=== PATIENT | female | born 2000 | race Caucasian/White ===

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

== ENCOUNTER → 2020-06-21 | Outpatient (CLI) | payer OTHER ==
[2020-06-21 20:14] LABS: African American GFR (CKD) 153.1 (60.0-200.0); Albumin 4.6 g/dL (3.80-4.90); Albumin/Globulin Ratio 2.09 (1.60-3.17); Anion Gap 7.3 mmol/L (4.00-12.00); Calcium 9.8 mg/dL (8.7-10.3); Carbon Dioxide 27.7 mmol/L (21.6-31.8); Chol/HDL Ratio 2.61; Globulin 2.2 g/dL (1.6-3.3); LDL Cholesterol,Calculated 76.8 mg/dL (0.0-131.0); Potassium 3.9 mmol/L (3.5-5.5); Total Bilirubin 0.4 mg/dL (0.2-1.2); Total Protein 6.8 g/dL (6.2-8.2); VLDL Calculation 10.2 mg/dL (5.00-40.00)
[2020-06-21 20:55] LABS: Hemoglobin A1C 7.5 % (4.0-6.0)
[2020-06-22 00:03] LABS: Urine Creatinine 95.3 mg/dL
[2020-06-22 13:59] LABS: Non-African American GFR(CKD) 132.1 (60.0-200.0)
== END | disposition home or self-care (01) ==
LOC: LABWHC1 12:42
PROVIDERS: ATTEND Internal Medicine Endocrinology, Diabetes & Metabolism
DX: E10.65 Type 1 diabetes mellitus with hyperglycemia (principal)
CPT/HCPCS: 36415; 80053; 80061; 82043; 82570; 83036; 84443

== ENCOUNTER → 2020-11-28 | Outpatient (CLI) | payer OTHER ==
[2020-11-28 19:57] LABS: ALT 19 U/L (8-44); AST 17 U/L (13-35); African American GFR (CKD) 152.1 (60.0-200.0); Alkaline Phosphatase 52 U/L (41-126); BUN/Creat Ratio 23.33 Ratio (12.00-20.00); Calcium 9.2 mg/dL (8.7-10.3); Carbon Dioxide 22.1 mmol/L (21.6-31.8); Chloride 108 mmol/L (96-109); Chol/HDL Ratio 2.67; Cholesterol 144 mg/dL (0-200); Globulin 2.7 g/dL (1.6-3.3); Non-African American GFR(CKD) 131.2 (60.0-200.0); Potassium 3.9 mmol/L (3.5-5.5); Sodium 139 mmol/L (135-145); Total Bilirubin 0.2 mg/dL (0.2-1.2); Total Protein 7.3 g/dL (6.2-8.2); Triglycerides <50.0 mg/dL (0.0-149.0)
[2020-11-28 20:12] LABS: Urine Creatinine 127.2 mg/dL
[2020-11-28 20:19] LABS: Hemoglobin A1C 8.1 % (4.0-6.0)
[2020-11-28 20:36] LABS: Glucose 51 mg/dL (70-110)
== END | disposition home or self-care (01) ==
LOC: LABWHC1 09:05
PROVIDERS: ATTEND Internal Medicine Endocrinology, Diabetes & Metabolism
DX: E10.65 Type 1 diabetes mellitus with hyperglycemia (principal)
CPT/HCPCS: 36415; 80053; 80061; 82043; 82570; 83036; 84443